=== PATIENT | female | born 1990 | race Two or more races ===

== ENCOUNTER 2021-03-20 02:12 | Emergency (ER) | payer MEDICAID, OTHER ==
[~2021-03-20] VITALS: Ht 170.2 cm; Wt 90.9 kg
[2021-03-20] MEDS ORDERED: ACET-910 PO (02:23)
[2021-03-20 03:41] LABS: BASO % 0.2 % (0.0-1.0); EOS % 0.3 % (0.0-3.0); HEMATOCRIT 38.9 % (36.0-47.0); HEMOGLOBIN 12.9 g/dl (12.0-15.5); LYMPH % 30.6 % (24.0-44.0); MEAN CORPUSCULAR HEMOGLOBIN 30.6 pg (27.0-33.0); MEAN CORPUSCULAR HGB CONC 33.2 g/dl (32.0-36.5); MEAN CORPUSCULAR VOLUME 92.4 fl (80.0-96.0); MONO # 1.1 10^3/uL (0.0-0.8); MONO % 11.4 % (2.0-8.0); NEUTROPHILS # 5.6 10^3/uL (1.5-8.5); NEUTROPHILS % 57.3 % (36.0-66.0); PLATELET COUNT, AUTOMATED 245 10^3/uL (150-450); RED BLOOD COUNT 4.21 10^6/uL (4.00-5.40); WHITE BLOOD COUNT 9.7 10^3/uL (4.0-10.0)
[2021-03-20 03:56] LABS: HCG, SERUM QUALITATIVE NEGATIVE (NEGATIVE)
[2021-03-20 04:00] LABS: ALT/SGPT 62 U/L (12-78); BILIRUBIN,DIRECT 0.3 MG/DL (0.0-0.2); BILIRUBIN,TOTAL 0.9 MG/DL (0.2-1.0); BLOOD UREA NITROGEN 11 MG/DL (7-18); CALCIUM LEVEL 8.7 MG/DL (8.5-10.1); CARBON DIOXIDE LEVEL 26 MEQ/L (21-32); CHLORIDE LEVEL 106 MEQ/L (98-107); CREATININE FOR GFR 0.81 MG/DL (0.55-1.30); FREE T4 1.16 NG/DL (0.76-1.46); GLOMERULAR FILTRATION RATE > 60.0 (>60); GLUCOSE, FASTING 102 MG/DL (70-100); POTASSIUM SERUM 3.6 MEQ/L (3.5-5.1); SODIUM LEVEL 138 MEQ/L (136-145); THYROID STIMULATING HORMONE 0.929 uIU/ML (0.358-3.740); TOTAL PROTEIN 7.8 GM/DL (6.4-8.2)
--- NOTE | 2021-03-20 05:44 | REPVR ---
PROCEDURE INFORMATION: Exam: XR Chest Exam date and time: 03/20/2021 4:30 AM Age: 30 years old Clinical indication: Fever TECHNIQUE: Imaging protocol: XR of the chest. Views: 2 views. COMPARISON: No relevant prior studies available. FINDINGS: Lungs: No consolidation. Pleural spaces: No pleural effusion. No pneumothorax. Heart/Mediastinum: No cardiomegaly. Bones/joints: Unremarkable. IMPRESSION: No acute findings. Electronically signed by: Oleksandr Lloyd On 03/20/2021 05:43:43 AM
[2021-03-20 06:09] VITALS: BP 119/86
--- NOTE | 2021-03-20 06:22 | ECGEPIP ---
[facility] - ED Test Date: 2021-03-20 Pat Name: CLAUDIA ISABEL Department: Room: - Gender: Female Technical Planner: RAFAT : 1990 Requested By: NURYS Rollins Order Number: [id number] Reading MD: Evan Chowdhury Measurements Intervals [place] Rate: 101 P: 50 SD: 136 QRS: 36 QRSD: 90 T: -1 QT: 328 QTc: 425 Interpretive Statements Sinus tachycardia T wave abnormality, consider inferior ischemia No prior ECG for comparison CLINICAL CORRELATION ADVISED Electronically Signed on 03-20-2021 6:22:13 EDT by Evan Chowdhury
== END 2021-03-20 06:10 | disposition home or self-care (01) ==
LOC: M ED 02:12
DX: R53.81 Other malaise (principal); R53.83 Other fatigue
CPT/HCPCS: 36415; 71046; 80048; 80076; 84439; 84443; 84703; 85025; 87804; 93005; 99284; U0003

== ENCOUNTER 2021-05-17 14:48 | Emergency (ER) | payer OTHER ==
[~2021-05-17] VITALS: Ht 170.2 cm; Wt 91.6 kg
[~2021-05-17 14:48] MED LIST: ACET-910 PO
--- OUTSIDE RECORDS SUMMARY | 2021-05-17 17:33 | CCD ---
Author Author [facility] Organization [facility] Address Unknown Phone Unavailable Support Name Relationship Address Phone [employer] [place] [address] [address] [address] Re-disclosure Warning The records that you are about to access may contain information from federally-assisted alcohol or drug abuse programs. If such information is present, then the following federally mandated warning applies: This information has been disclosed to you from records protected by federal confidentiality rules (42 CFR part 2). The federal rules prohibit you from making any further disclosure of this information unless further disclosure is expressly permitted by the written consent of the person to whom it pertains or as otherwise permitted by 42 CFR part 2. A general authorization for the release of medical or other information is NOT sufficient for this purpose. The Federal rules restrict any use of the information to criminally investigate or prosecute any alcohol or drug abuse patient.The records that you are about to access may contain highly sensitive health information, the redisclosure of which is protected by Article 27-F of the [facility] Public Health law. If you continue you may have access to information: Regarding HIV / AIDS; Provided by facilities licensed or operated by the [facility] Office of Mental Health; or Provided by the [facility] Office for People With Developmental Disabilities. If such information is present, then the following [facility] mandated warning applies: This information has been disclosed to you from confidential records which are protected by state law. State law prohibits you from making any further disclosure of this information without the specific written consent of the person to whom it pertains, or as otherwise permitted by law. Any unauthorized further disclosure in violation of state law may result in a fine or residential sentence or both. A general authorization for the release of medical or other information is NOT sufficient authorization for further disc losure. Medications No Information Insurance Providers Payer name Policy type / Coverage type Policy ID Covered constitution party ID Covered constitution party's relationship to rich Policy Rich Plan Information [place] [id number] [facility] MEDICAID [id number] SP [id number] V [facility] MEDICAID [id number] [place] [id number] SP [id number] Problems, Conditions, and Diagnoses No Information Surgeries/Procedures No Information Results ID Date Data Source [id number] 03/20/2021 03:37:00 AM EDT [facility] Name Value Range Interpretation Code Description Data Darlene rce(s) Supporting Document(s) SARS COVID ANTIGEN NEGATIVE [facility] This lab was ordered by [facility] a nd reported by [facility]. ID Date Data Source [id number] 03/20/2021 03:20:00 AM EDT [facility] Name Value Range Interpretation Code Description Data Darlene rce(s) Supporting Document(s) SARS COVID ANTIGEN NEGATIVE [facility] This lab was ordered by [facility] a nd reported by [facility]. Procedure Social History No Information
[2021-05-17 17:34] VITALS: BP 117/67
== END 2021-05-17 17:42 | disposition home or self-care (01) ==
LOC: M ED 14:48
DX: N94.6 Dysmenorrhea, unspecified (principal)